=== PATIENT | male | born 1955 | race Hispanic/Latino ===

== ENCOUNTER → 2017-11-01 | Outpatient (CLI) | payer OTHER ==
[~2017-11-01] MED LIST: AEC81 PO; AMLO5TAB2 PO; IBUP-2077 PO; INSU10VI4 SQ; LEVO500S PO; LOSA1TAB54 PO; METF10004 PO; SIMV40TA5 PO
== END | disposition home or self-care (01) ==
LOC: OIH 10-24 14:19
PROVIDERS: ATTEND Internal Medicine Cardiovascular Disease
DX: Z13.6 Encounter for screening for cardiovascular disorders (principal)
CPT/HCPCS: 75571

== ENCOUNTER → 2017-12-24 | Outpatient (CLI) | payer OTHER | END | disposition home or self-care (01) | LOC: RAH 13:05 | PROVIDERS: ATTEND Neurological Surgery | DX: M47.12 Other spondylosis with myelopathy, cervical region (principal); M48.02 Spinal stenosis, cervical region; M50.30 Other cervical disc degeneration, unspecified cervical region | CPT/HCPCS: 72141 ==

== ENCOUNTER → 2017-12-27 | Outpatient (CLI) | payer OTHER | END | disposition home or self-care (01) | LOC: RAH 12:34 | PROVIDERS: ATTEND Neurological Surgery | DX: M48.03 Spinal stenosis, cervicothoracic region (principal); M54.14 Radiculopathy, thoracic region; M47.14 Other spondylosis with myelopathy, thoracic region | CPT/HCPCS: 72146 ==

== ENCOUNTER → 2018-03-26 | Outpatient (CLI) | payer OTHER ==
[~2018-03-26] MED LIST changes: -AMLO5TAB2 PO; +AMLO5TAB7 PO; +METF-446 PO; -METF10004 PO
== END | disposition home or self-care (01) ==
LOC: RAH 13:30
PROVIDERS: ATTEND Neurological Surgery
DX: M47.13 Other spondylosis with myelopathy, cervicothoracic region (principal); Z98.1 Arthrodesis status
CPT/HCPCS: 72125

== ENCOUNTER → 2022-06-27 | Outpatient (CLI) | payer OTHER ==
[~2022-06-27] MED LIST changes: +AMLO-257 PO; -AMLO5TAB7 PO; +INSU100V33 SQ; -INSU10VI4 SQ; +SIMV-46 PO; -SIMV40TA5 PO
== END | disposition home or self-care (01) ==
LOC: RAH 10:01
PROVIDERS: ATTEND Urology
DX: N13.39 Other hydronephrosis (principal)
CPT/HCPCS: 76770

== ENCOUNTER → 2023-03-15 | Outpatient (CLI) | payer OTHER | END | disposition home or self-care (01) | LOC: RAH 13:18 | PROVIDERS: ATTEND Family Medicine | DX: L03.116 Cellulitis of left lower limb (principal); R22.42 Localized swelling, mass and lump, left lower limb | CPT/HCPCS: 76882 ==

== ENCOUNTER → 2023-12-24 | Outpatient (CLI) | payer OTHER ==
[~2023-12-24] MED LIST changes: +LEVO-70 PO; -LEVO500S PO; +LOSA-420 PO; -LOSA1TAB54 PO
== END | disposition home or self-care (01) ==
LOC: RAH 09:22
PROVIDERS: ATTEND Urology
DX: N32.89 Other specified disorders of bladder (principal); E27.8 Other specified disorders of adrenal gland; N31.2 Flaccid neuropathic bladder, not elsewhere classified; M47.815 Spondylosis without myelopathy or radiculopathy, thoracolumbar region; Z96.0 Presence of urogenital implants
CPT/HCPCS: 74176

== ENCOUNTER 2024-02-13 20:06 | Emergency (ER) | payer OTHER ==
[~2024-02-13] VITALS: Ht 180.3 cm; Wt 138.3 kg
[2024-02-13 23:00] VITALS: BP 110/62; PULSE 72; RESP 20; O2SAT 97
== END 2024-02-13 23:02 | disposition home or self-care (01) ==
LOC: EDH 20:06
DX: T83.091A Other mechanical complication of indwelling urethral catheter, initial encounter (principal); N40.0 Benign prostatic hyperplasia without lower urinary tract symptoms; E11.9 Type 2 diabetes mellitus without complications; I10 Essential (primary) hypertension; Z79.82 Long term (current) use of aspirin; Z79.899 Other long term (current) drug therapy; Y82.9 Unspecified medical devices associated with adverse incidents; Y92.89 Other specified places as the place of occurrence of the external cause
CPT/HCPCS: 51702

== ENCOUNTER 2024-03-02 23:49 | Emergency (ER) | payer OTHER, MEDICARE ==
[~2024-03-02] VITALS: Ht 180.3 cm; Wt 142.9 kg
[2024-03-03 00:49] LABS: APPEARANCE,URINE CLOUDY (CLEAR); BILIRUBIN,URINE NEGATIVE (NEGATIVE); COLOR,URINE LIGHT-YELLOW (YELLOW); GLUCOSE, URINE (UA) TRACE mg/dL (NEGATIVE); KETONES,URINE NEGATIVE (NEGATIVE); LEUKOCYTE ESTERASE ,URINE 500 Leu/uL (NEGATIVE); NITRATE,URINE NEGATIVE (NEGATIVE); OCCULT BLOOD,URINE MODERATE (NEGATIVE); PROTEIN,URINE 10 mg/dL (NEGATIVE); UROBILINOGEN,URINE 0.2 mg/dL (0.2-1.0)
[2024-03-03 00:51] LABS: ADD UA MICROSCOPIC YES
[2024-03-03 00:56] LABS: BACTERIA,URINE FEW /HPF (None Seen); WBC,URINE TNTC /HPF (0-1); YEAST,URINE BUDDING MANY /HPF (None Seen)
[2024-03-03] MEDS ORDERED: LEVO750T39 PO (01:30)
[2024-03-03 01:59] VITALS: BP 132/68; PULSE 72; RESP 20; O2SAT 98
== END 2024-03-03 02:00 | disposition home or self-care (01) ==
LOC: EDH 23:49
DX: T83.038A Leakage of other urinary catheter, initial encounter (principal); N40.0 Benign prostatic hyperplasia without lower urinary tract symptoms; G82.20 Paraplegia, unspecified; E11.9 Type 2 diabetes mellitus without complications; I10 Essential (primary) hypertension; Z79.4 Long term (current) use of insulin; Z79.82 Long term (current) use of aspirin; Z79.899 Other long term (current) drug therapy; Z98.890 Other specified postprocedural states; Y84.6 Urinary catheterization as the cause of abnormal reaction of the patient, or of later complication, without mention of misadventure at the time of the procedure
CPT/HCPCS: 51702; 81001; 87086; 87186

== ENCOUNTER 2024-10-24 02:32 | Emergency (ER) | payer OTHER, MEDICARE ==
[~2024-10-24] VITALS: Ht 182.9 cm; Wt 142.9 kg
[~2024-10-24 02:32] MED LIST changes: +LEVO750T90 PO
[2024-10-24 02:39] VITALS: BP 124/84; PULSE 66; RESP 20; TEMP 98.6; O2SAT 100
--- NOTE | 2024-10-24 02:44 | ERN ---
General Chief Complaint: Generalized Body Aches Stated Complaint: GENERALIZED BODY ACHES Time Seen by MD: 02:38 Source: patient History of Present Illness Initial Comments Patient is here because he had trouble sleeping and he had some body aches. He was seen earlier today by his PCP and diagnosed with a urinary tract infection and placed on oral antibiotics. 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 He said there was a rash on his right side and where he is pointing I do not see a rash. The patient's vital signs are normal right now: Afebrile normal blood pressure slightly elevated respiratory rate and a normal sinus rhythm. Allergies: Coded Allergies: No Known Allergies (Unverified Allergy, Unknown, 02/03/17) Home Meds Active Scripts Levofloxacin (Levofloxacin) 750 Mg Tablet, 750 MG PO DAILY for 7 Days, #7 TAB Prov:ELIDA SALMON MD 03/03/24 Levofloxacin (Levofloxacin) 500 Mg Tablet, 500 MG PO DAILY for 7 Days, #7 TAB Prov:DORENE THOMPSON 07/26/23 Losartan Potassium (Cozaar) 100 Mg Tablet, 100 MG PO DAILY, #30 TAB Prov:DORENE THOMPSON 07/26/23 Reported Medications Insulin NPL/Insulin Lispro (Humalog Mix 75-25 Vial) 100 Unit/1 Ml Vial, 90 UNITS SQ PCDINNER, VIAL 02/03/17 Insulin NPL/Insulin Lispro (Humalog Mix 75-25 Vial) 100 Unit/1 Ml Vial, 100 UNITS SQ ACBKFST, VIAL 02/03/17 Amlodipine Besylate (Amlodipine Besylate) 5 Mg Tablet, 5 MG PO DAILY, TAB 02/03/17 Ibuprofen (Ibuprofen 800 mg Tab) 800 Mg Tab, 800 MG PO TIDP PRN for PAIN LEVEL 1 TO 5, TAB 02/03/17 Metformin HCl (Metformin HCl) 1,000 Mg Tablet, 1000 MG PO BIDAC, TAB 02/03/17 Aspirin (ASPIRIN 81 MG ECTAB) 81 Mg Ectab, 81 MG PO DAILY, TAB.EC 02/03/17 Simvastatin (Simvastatin) 40 Mg Tablet, 40 MG PO HS, TAB 02/03/17 Past Medical History Past Medical History: Hypertension Medical History Other: PARAPLEGIA , MRSA, chronic Nam Past Surgical History: None Surgical History Other: NECK AND KNEE SURGEY Family History Family History: Negative Social History Social History: Negative Constitutional: (-) chills, (-) diaphoresis, (-) fever, (-) malaise, (-) weakness, (-) other documentation EENTM: (-) eye pain, (-) blurred vision, (-) tearing, (-) double vision, (-) ear pain, (-) ear discharge, (-) nose pain, (-) nose congestion, (-) throat pain, (-) Throat swelling, (-) mouth pain, (-) tooth pain, (-) mouth swelling, (-) other documentation Respiratory: (-) cough, (-) orthopnea, (-) short of breath, (-) stridor, (-) wheezing, (-) other documentation Cardiovascular: (-) chest pain, (-) edema, (-) palpitations, (-) syncope, (-) dyspnea on exertion, (-) other documentation Gastrointestinal/Abdominal: (-) nausea, (-) vomiting, (-) diarrhea, (-) abdominal pain, (-) abdominal distention, (-) constipation, (-) rectal bleeding, (-) dark stool/melena, (-) other documentation Genitourinary: (-) penile discharge, (-) dysuria, (-) frequency, (-) hematuria, (-) pain, (-) other documentation Musculoskeletal: (-) Neck pain, (-) back pain, (-) Flank Pain, (-) joint pain, (-) joint swelling, (-) muscle pain, (-) muscle stiffness, (-) gout, (-) other documentation Skin: (-) laceration, (-) contusion, (-) abrasion, (-) abscess, (-) rash, (-) change in color, (-) change in hair, (-) change in nails, (-) diaphoresis, (-) dryness, (-) other documentation Neuro: (-) altered mental status, (-) headache, (-) syncope, (-) paralysis, (-) numbness, (-) seizure, (-) pre-existing deficit, (-) tremors, (-) weakness, (-) dizziness, (-) slurred speech, (-) vertigo, (-) other documentation Physical Exam General Appearance: (+) no apparent distress Orientation: (+) alert Head/Face Trauma: No Eye: bilateral eye normal inspection, bilateral eye PERRL, bilateral eye EOMI Ear, Nose, Throat: (+) hearing grossly normal, (+) normal ENT inspection, (+) moist mucous membraine Neck: (+) normal inspection, (+) supple, (+) full range of motion Respiratory: (+) chest non-tender, (+) lungs clear, (+) well ventilated Heart: (+) regular, (+) no gallop Vascular: (+) no edema Gastrointestinal: (+) soft, (+) non-tender, (+) bowel sound present MDM Patient has no complaints that mandate a visit to an emergency room. He is being treated for his urinary tract infection. His Nam is functioning. He is making good urine. His vital signs are normal. I see no reason to admit this patient to the emergency room and provide a diagnosis for a condition that has already been worked up and is being adequately treated. I repeat the patient is afebrile. Not being able to sleep is not a reason to be admitted to an emergency room. ED Course Vital Signs Date Time Temp Pulse Resp B/P (MAP) Pulse Ox O2 Delivery O2 Flow Rate FiO2 10/24/24 02:34 98.8 86 20 113/72 96 Room Air 0 DX & DISP Disposition: Discharge Departure Impression: Primary Impression: Insomnia Condition: Stable Additional Instructions: Please return if you have a high fever a decrease in urine mental status or low blood pressure. Referrals: KRISTIAN VALDOVINOS M.D. (PCP) CHARLI ROTH MD Oct 24, 2024 02:44
== END 2024-10-24 02:51 | disposition home or self-care (01) ==
LOC: EDH 02:32
DX: G47.00 Insomnia, unspecified (principal); I10 Essential (primary) hypertension; Z79.82 Long term (current) use of aspirin; Z79.899 Other long term (current) drug therapy; Z98.890 Other specified postprocedural states
CPT/HCPCS: 99283

== ENCOUNTER 2024-12-24 09:41 | Day surgery (SDC) | payer OTHER, MEDICAID ==
[~2024-12-24] VITALS: Ht 180.3 cm; Wt 133.8 kg
[2024-12-24] VITALS (11 sets, daily range): BP systolic 94–142; BP diastolic 54–68; PULSE 54–64; RESP 15–18; TEMP 97.2–97.9
[2024-12-24] MEDS: 0.9%NACL 1000ML 1,000 ML IV ONE (10:38)
[2024-12-24] MEDS ORDERED: HYDR25TA PO (10:41)
[2024-12-24] MEDS ORDERED: CHOL500062 PO (10:41)
[2024-12-24] MEDS ORDERED: METO25TA6 PO (10:41)
[2024-12-24] MEDS ORDERED: TIZA4CAP8 PO (10:41)
[2024-12-24] MEDS ORDERED: PREG150C47 PO (10:41)
[2024-12-24] MEDS ORDERED: LORA10TA7 PO (10:41)
[2024-12-24] MEDS ORDERED: OMEP-420 PO (10:41)
[2024-12-24] MEDS ORDERED: OMEG100033 PO (10:43)
[2024-12-24] MEDS ORDERED: ROSU10TA72 PO (10:44)
[2024-12-24] MEDS ORDERED: MULT-1203 PO (10:44)
[2024-12-24] MEDS ORDERED: proPOFol 10 MG/ML 20ML VIAL IV ONE (12:26)
[2024-12-24] MEDS ORDERED: LIDOCAINE PF 100MG/5ML (2%) SYRINGE 5ML ONE (12:26)
== END 2024-12-24 14:00 | disposition home or self-care (01) ==
LOC: DAH 09:41 → ENDO 09:41
PROVIDERS: ATTEND Internal Medicine Gastroenterology
DX: K59.04 Chronic idiopathic constipation (principal); K63.89 Other specified diseases of intestine; I10 Essential (primary) hypertension; E11.9 Type 2 diabetes mellitus without complications; M19.90 Unspecified osteoarthritis, unspecified site; E66.01 Morbid (severe) obesity due to excess calories; E78.5 Hyperlipidemia, unspecified; K57.90 Diverticulosis of intestine, part unspecified, without perforation or abscess without bleeding; Z86.0100 Personal history of colon polyps, unspecified; G82.20 Paraplegia, unspecified; Z79.84 Long term (current) use of oral hypoglycemic drugs; Z79.82 Long term (current) use of aspirin; Z79.899 Other long term (current) drug therapy
CPT/HCPCS: 45378; 82948 ×2; J7030; J2003; J2704; A4620; A4215 ×2; A4223; A4222; A4221; A4663; A4606; J3490